=== PATIENT | male | born 1960 | race Caucasian/White ===

== ENCOUNTER 2020-07-31 23:02 | Observation (INO) ==
[2020-07-31] MEDS ORDERED: Morphine Sulfate 2 MG/ML SYRINGE IVP ONE (23:19)
[2020-07-31] MEDS ORDERED: Ondansetron 4 MG/2 ML VIAL IVP ONE (23:19)
[2020-07-31] MEDS ORDERED: Aspirin 81 MG TAB.CHEW PO ONE (23:19)
[2020-07-31] MEDS ORDERED: 0.9 % Sodium Chloride 500 ML IVC ONE (23:19)
[2020-07-31 23:25] LABS: Basophils # 0.1 K/mcL (0.0-0.2); Basophils % 1.1 %; Eosinophils # 0.3 K/mcL (0.0-0.6); Eosinophils % 2.6 %; Hematocrit 38.4 % (37.5-50.1); Hemoglobin 12.5 g/dL (12.9-16.9); Immature Granulocytes % 1.9 % (0-4); Lymphocytes # 2.3 K/mcL (0.6-4.6); Lymphocytes % 22.5 %; Mean Corpuscular HGB Conc 32.6 g/dL (31.6-35.5); Mean Corpuscular Hemoglobin 29.1 pg (28.0-33.3); Mean Corpuscular Volume 89.3 fL (83.0-100.0); Mean Platelet Volume 9.5 fL (9.4-12.4); Monocytes # 0.8 K/mcL (0.0-1.3); Monocytes % 7.5 %; Neutrophils # 6.6 K/mcL (1.6-8.9); Platelet Count 299 K/mcL (140-400); Red Cell Distribution Width 14.3 % (11.5-14.5); Segmented Neutrophils % 64.4 %; White Blood Count 10.2 K/mcL (4.3-11.1)
[2020-07-31 23:29] LABS: Prothrombin Time 10.9 Seconds (9.4-12.1)
[2020-07-31 23:31] LABS: Activated Partial Thrombo Time 27.6 Seconds (26.0-36.0)
[2020-07-31 23:40] LABS: Troponin I < 0.03 ng/mL (< 0.04)
[2020-07-31 23:41] LABS: BUN/Creatinine Ratio 15 (6-26); Blood Urea Nitrogen 11 mg/dL (6-20); Calcium 9.1 mg/dL (8.6-10.3); Carbon Dioxide 29 mEq/L (23-29); Chloride 98 mEq/L (98-107); Glucose 172 mg/dL (70-105); Osmolality,Calculated 281 (280-300); Potassium 4.2 mEq/L (3.5-5.1); Sodium 134 mEq/L (136-145); eGFR For African Americans > 60 (> 60); eGFR For Non-African Americans > 60 (> 60)
[2020-08-01] MEDS ORDERED: (Dulaglutide [Trulicity] 1.5 MG) SQ SCH (01:37)
[2020-08-01] MEDS ORDERED: Naloxone 0.4 MG/ML INJ IVP PRN (01:37)
[2020-08-01] MEDS ORDERED: *HR* HYDROcodone/Acet 5/325 mg TABLET PO PRN (01:37)
[2020-08-01] MEDS ORDERED: Melatonin 3 MG TABLET PO PRN (01:37)
[2020-08-01] MEDS ORDERED: Ondansetron ODT 4 MG TAB.RAPDIS SL PRN ×2 (01:37)
[2020-08-01] MEDS ORDERED: 0.9 % Sodium Chloride 1,000 ML IVC SCH (01:37)
[2020-08-01] MEDS ORDERED: (Alogliptin Benzoate [Alogliptin] 25 MG) PO SCH (09:00)
[2020-08-01] MEDS ORDERED: Gabapentin 300 MG CAPSULE PO SCH (09:00)
[2020-08-01] MEDS ORDERED: Propranolol LA (24 HR) 60 MG CAP.SA.24H PO SCH (09:00)
[2020-08-01] MEDS ORDERED: *HR* Metformin 500 MG TABLET PO SCH (09:00)
[2020-08-01] MEDS ORDERED: GlipiZIDE 5 MG TABLET PO SCH (09:00)
[2020-08-01] MEDS ORDERED: Ammonium Lactate 30 APPL/225 GM BOTTLE TP SCH (09:00)
[2020-08-01] MEDS ORDERED: Loratadine 10 MG TABLET PO SCH (09:00)
[2020-08-01] MEDS ORDERED: Aspirin 325 MG TABLET PO SCH (09:00)
[2020-08-01] MEDS ORDERED: lisinopriL 20 MG TABLET PO SCH (09:00)
[2020-08-01 12:57] VITALS: BP 137/77
== END 2020-08-01 15:59 | disposition home or self-care (01) ==
LOC: EMEROOGRE 23:02 → INPGRE 23:02
PROVIDERS: ADMIT Family Medicine; ATTEND Family Medicine